=== PATIENT | female | born 1965 | race Caucasian/White ===

== ENCOUNTER → 2016-04-10 | Outpatient (CLI) | payer OTHER ==
--- NOTE | 2016-04-10 12:26 | MA ---
Screening Digital Mammogram With iCAD Analysis Clinical Indications: Routine screening. Her paternal grandmother was diagnosed with breast cancer in her 70s. Patient has had a benign left breast biopsy. Technique: Standard cephalocaudal and mediolateral oblique projections were obtained. This examinatio n was processed by the iCAD computer aided detection system. Comparison: May 2013, December 2011, November 2010, November 2008, August 2007, July 2006. Breast density: Type C; Heterogeneously dense. Findings: CAD was reviewed. No masses, suspicious calcifications or other signs of malignancy are id entified. There has been no significant change in the appearance of either breast. Impression: Negative mammogram. BI-RADS 1. Recommendation: Routine mammography in one year as long as physical examination is negative in this p atient with heterogeneously dense breasts. [facility] will send a result letter to the patient. Dense breast parenchyma diminishes mammographic sensitivity. Negative mammography should not preclude additional workup of a clinically suspicious finding. The patient's information is entered into a reminder system with a target due date for her next mammo gram.
== END ==
LOC: FIMAGING 09:41
DX: Z12.31 Encounter for screening mammogram for malignant neoplasm of breast (principal); Z80.3 Family history of malignant neoplasm of breast
CPT/HCPCS: G0202

== ENCOUNTER 2016-04-17 21:19 | Inpatient (IN) | payer OTHER ==
[2016-04-17] MEDS ORDERED: HYDROmorphONE/DILAUDID 1 MG/ML SYR ONE (22:11)
[2016-04-17] MEDS ORDERED: ONDANSETRON 4 MG/2 ML VIAL ONE (22:11)
[2016-04-17 22:26] LABS: % IMMATURE GRANULYOCYTES 0.5 % (0.0-1.1); ABSOLUTE IMMATURE GRANULOCYTES 0.07 10^3/uL (0.00-0.10); ADD DIFF? NO; ADD MORPH? NO; ADD SCAN? NO; ATYPICAL LYMPHOCYTE FLAG 10 (0-99); FRAGMENT RBC FLAG 20 (0-99); HEMATOCRIT 31.7 % (38.0-47.0); HEMOGLOBIN 10.2 g/dL (12.6-16.3); LEFT SHIFT FLG 0 (0-99); LIPEMIA HEMOLYSIS FLAG 80 (0-99); MEAN CELL HEMOGLOBIN 22.7 pg (27.9-34.1); MEAN CELL HEMOGLOBIN CONCENTR. 32.2 g/dL (32.4-36.7); MEAN CELL VOLUME 70.6 fL (81.5-99.8); MEAN PLATELET VOLUME 9.6 fL (8.7-11.7); PLATELET CLUMPS FLAG 0 (0-99); PLATELET COUNT 389 10^3/uL (150-400); RED BLOOD CELL COUNT 4.49 10^6/uL (4.18-5.33); RED CELL DISTRIBUTION WIDTH 17.9 % (11.5-15.2)
[2016-04-17 22:32] LABS: ANION GAP 11 mEq/L (8-16); CALCIUM 9.1 mg/dL (8.5-10.4); CARBON DIOXIDE 20 mEq/l (22-31); CHLORIDE 110 mEq/L (97-110); CREATININE 0.7 mg/dL (0.6-1.0); GLOMERULAR FILTRATION RATE > 60; GLUCOSE 115 mg/dL (70-100); POTASSIUM 3.9 mEq/L (3.5-5.2); SODIUM 141 mEq/L (134-144)
[2016-04-17] MEDS ORDERED: IOPAMIDOL (ISOVUE-300) 100 ML BTL IV ONE (22:40)
[2016-04-17 22:44] LABS: COLOR YELLOW; LEUKOCYTE ESTERASE,URINE 1+ (NEGATIVE); NITRITE,URINE NEGATIVE (NEGATIVE)
[2016-04-17 22:52] LABS: BACTERIA TRACE /hpf (NONE SEEN); MUCUS TRACE /lpf (NONE-1+)
[2016-04-17] MEDS ORDERED: ERTAPENEM 1 GM in NS 100 ML IV ONE (23:29)
--- NOTE | 2016-04-17 23:29 | EDPHY ---
H & P Stated Complaint: abd pain Time Seen by Provider: 04/17/16 21:53 HPI/ROS: Chief complaint: Abdominal pain History of present illness: This is a 50-year-old female who presents to the emergency department for evaluation of abdominal pain. Patient reports the onset of symptoms over the last day. Primarily in the lower quadrants. She did see her primary care doctor's office and they felt she might have a urinary tract infection and started her on Keflex. Despite this symptoms continue to worsen. She has developed an associated fever. She denies precipitating factors. She denies alleviating factors. She denies other associated signs or symptoms. Review of systems: A 10 point review of systems was obtained and other than described above was negative - Personal History LMP (Females 10-55): 15-21 Days Ago Current Tetanus/Diphtheria Vaccine: Yes Current Tetanus Diphtheria and Acellular Pertussis (TDAP): Yes Tetanus Vaccine Date: < 10 years - Medical/Surgical History Hx Asthma: No Hx Chronic Respiratory Disease: No Hx Diabetes: No Hx Cardiac Disease: No Hx Renal Disease: No Hx Cirrhosis: No Hx Alcoholism: No Hx HIV/AIDS: No Hx Splenectomy or Spleen Trauma: No Other PMH: hyperlipidemia, fibroidsd, UTI, CAD - Social History Smoking Status: Never smoked - Physical Exam Exam: General Appearance: Alert, appears uncomfortable. Eyes: Pupils equal and round no pallor or injection. ENT, Mouth: Mucous membranes moist. Respiratory: There are no retractions, lungs are clear to auscultation. Cardiovascular: Regular rate and rhythm. Gastrointestinal: Bowel sounds present. Abdomen is soft. There is tenderness in the lower quadrants bilaterally. Neurological: Alert and oriented. Strength and sensation intact and symmetrical. Skin: Warm and dry, no rashes. Musculoskeletal: Neck is supple non tender. Extremities are symmetrical, full range of motion. Psychiatric: Patient is oriented X 3, there is no agitation. Constitutional: Initial Vital Signs Temperature (C) 37.7 C 04/17/16 21:35 Heart Rate 100 04/17/16 21:35 Respiratory Rate 16 04/17/16 21:35 Blood Pressure 134/88 H 04/17/16 21:35 O2 Sat (%) 97 04/17/16 21:35 O2 Delivery Mode Room Air Allergies/Adverse Reactions: No Known Allergies Allergy (Verified 02/25/14 10:58) Home Medications: Medication Instructions Recorded LEXAPRO 03/08/09 Aspirin 81mg (OTC) 02/25/14 Simvastatin 02/25/14 Hydrocodone/APAP 5/325 [[place] 1 - 2 tab PO Q6H PRN #10 tab 11/06/14 5/325 (*)] Cephalexin [Keflex] 500 mg PO TID 5 Days 12/01/15 Cyclobenzaprine 04/17/16 Medical Decision Making - Diagnostics Imaging: CT scan of the abdomen pelvis with IV contrast reveals a diverticulitis ED Course/Re-evaluation: Patient seen under the supervision of my secondary supervising physician Dr. Twin Dunlap. Patient presents to the emergency department for evaluation of abdominal pain. Ultimately she appears to have diverticulitis without evidence of complications. However, she remains very uncomfortable with poor pain control. She is therefore admitted to the hospitalist, Dr. Rafael Mayo, for further evaluation and care. The plan has been discussed with the patient voiced understanding and agreement with it. Differential Diagnosis: Included but not limited to appendicitis, diverticulitis, colitis, bowel obstruction, urinary tract disease - Data Points Laboratory Results: Laboratory Results 04/17/16 21:58 04/17/16 21:58 04/17/16 04/17/16 04/17/16 22:10 21:58 21:58 WBC RBC Hgb Hct MCV MCH MCHC RDW Plt Count MPV Neut % (Auto) Lymph % (Auto) Roosevelt % (Auto) Eos % (Auto) Baso % (Auto) Nucleat RBC Rel Count Absolute Neuts (auto) Absolute Lymphs (auto) Absolute Monos (auto) Absolute Eos (auto) Absolute Basos (auto) Absolute Nucleated RBC Immature Gran % Immature Gran # Sodium 141 mEq/L mEq/L (134-144) Potassium 3.9 mEq/L mEq/L (3.5-5.2) Chloride 110 mEq/L mEq/L (97-110) Carbon Dioxide 20 mEq/l L mEq/l (22-31) Anion Gap 11 mEq/L mEq/L (8-16) BUN 8 mg/dL mg/dL (7-23) Creatinine 0.7 mg/dL mg/dL (0.6-1.0) Estimated GFR > 60 Glucose 115 mg/dL H mg/dL (70-100) Calcium 9.1 mg/dL mg/dL (8.5-10.4) Lipase 85.0 IU/L IU/L (23-300) Beta HCG, Qual NEGATIVE Urine Color YELLOW Urine Appearance HAZY Urine pH 5.0 (5.0-7.5) Ur Specific [place] 1.015 (1.002-1.030) Urine Protein NEGATIVE (NEGATIVE) Urine Ketones NEGATIVE (NEGATIVE) Urine Blood NEGATIVE (NEGATIVE) Urine Nitrate NEGATIVE (NEGATIVE) Urine Bilirubin NEGATIVE (NEGATIVE) Urine Urobilinogen NEGATIVE EU EU (0.2-1.0) Ur Leukocyte Esterase 1+ H (NEGATIVE) Urine RBC 5-10 /hpf H /hpf (0-3) Urine WBC 5-10 /hpf H /hpf (0-3) Ur Epithelial Cells TRACE /lpf /lpf (NONE-1+) Urine Bacteria TRACE /hpf H /hpf (NONE SEEN) Urine Mucus TRACE /lpf /lpf (NONE-1+) Ur Culture Indicated? INDICATED H (NI) Urine Glucose NEGATIVE (NEGATIVE) 04/17/16 21:58 WBC 14.90 10^3/uL H 10^3/uL (3.80-9.50) RBC 4.49 10^6/uL 10^6/uL (4.18-5.33) Hgb 10.2 g/dL L g/dL (12.6-16.3) Hct 31.7 % L % (38.0-47.0) MCV 70.6 fL L fL (81.5-99.8) MCH 22.7 pg L pg (27.9-34.1) MCHC 32.2 g/dL L g/dL (32.4-36.7) RDW 17.9 % H % (11.5-15.2) Plt Count 389 10^3/uL 10^3/uL (150-400) MPV 9.6 fL fL (8.7-11.7) Neut % (Auto) 83.4 % H % (39.3-74.2) Lymph % (Auto) 9.3 % L % (15.0-45.0) Roosevelt % (Auto) 6.0 % % (4.5-13.0) Eos % (Auto) 0.5 % L % (0.6-7.6) Baso % (Auto) 0.3 % % (0.3-1.7) Nucleat RBC Rel Count 0.0 % % (0.0-0.2) Absolute Neuts (auto) 12.43 10^3/uL H 10^3/uL (1.70-6.50) Absolute Lymphs (auto) 1.38 10^3/uL 10^3/uL (1.00-3.00) Absolute Monos (auto) 0.90 10^3/uL H 10^3/uL (0.30-0.80) Absolute Eos (auto) 0.07 10^3/uL 10^3/uL (0.03-0.40) Absolute Basos (auto) 0.05 10^3/uL 10^3/uL (0.02-0.10) Absolute Nucleated RBC 0.00 10^3/uL 10^3/uL (0-0.01) Immature Gran % 0.5 % % (0.0-1.1) Immature Gran # 0.07 10^3/uL 10^3/uL (0.00-0.10) Sodium Potassium Chloride Carbon Dioxide Anion Gap BUN Creatinine Estimated GFR Glucose Calcium Lipase Beta HCG, Qual Urine Color Urine Appearance Urine pH Ur Specific [place] Urine Protein Urine Ketones Urine Blood Urine Nitrate Urine Bilirubin Urine Urobilinogen Ur Leukocyte Esterase Urine RBC Urine WBC Ur Epithelial Cells Urine Bacteria Urine Mucus Ur Culture Indicated? Urine Glucose Medications Given: Discontinued Medications Hydromorphone HCl (Dilaudid) 1 mg IVP EDNOW ONE Stop: 04/17/16 23:44 Last Admin: 04/17/16 22:00 Dose: 1 mg Sodium Chloride (Ns) 1,000 mls @ 0 mls/hr IV ONCE ONE PRN Reason: Wide Open Stop: 04/17/16 23:44 Last Admin: 04/17/16 22:00 Dose: 1,000 mls Ondansetron HCl (Zofran) 4 mg IVP EDNOW ONE Stop: 04/17/16 23:44 Last Admin: 04/17/16 22:00 Dose: 4 mg Departure - Departure Disposition: [facility] Clinical Impression: Diverticulitis Qualifiers: Diverticulitis site: large intestine Diverticulitis bleeding: without bleeding Diverticulitis complication: without perforation or abscess Qualified Code(s): K57.32 - Diverticulitis of large intestine without perforation or abscess without bleeding Condition: Good
[2016-04-17] MEDS ORDERED: NS 1,000 ML IV ONE (23:43)
[2016-04-17] MEDS ORDERED: HYDROmorphONE/DILAUDID 1 MG/ML SYR IVP ONE (23:43)
[2016-04-17] MEDS ORDERED: ONDANSETRON 4 MG/2 ML VIAL IVP ONE (23:43)
[2016-04-18] MEDS ORDERED: ONDANSETRON DISINTEGRATING 4 MG TAB PO PRN (01:09)
[2016-04-18] MEDS: oxyCODONE IR 5 MG TAB PO PRN ×5 (01:30→20:14)
[2016-04-18] MEDS: NS 1,000 ML IV SCH ×2 (01:31→09:04)
--- NOTE | 2016-04-18 01:36 | GHP ---
[f rep st] HISTORY AND PHYSICAL DATE OF ADMISSION: 04/17/2016 CHIEF COMPLAINT: Abdominal pain. HISTORY OF PRESENT ILLNESS: A 50-year-old female with nonsignificant past medical history, presents with 2 days of lower abdominal pain. No change in bowel movements. No nausea, vomiting. She does have fever. She has never had diverticulitis before. REVIEW OF SYSTEMS: 10-point review of systems was obtained and other than HPI was negative. PAST MEDICAL HISTORY: 1. Hyperlipidemia. 2. Anxiety. MEDICATIONS: Reviewed. SOCIAL HISTORY: No smoking. Occasional alcohol. FAMILY HISTORY: Mother had diverticulitis. PHYSICAL EXAMINATION: VITAL SIGNS: Afebrile. Blood pressure is 110/63, heart rate 74, oxygen satu ration 92% on room air. GENERAL: The patient is well developed, in no apparent distress. HEENT: Nonicteric sclerae. Extraocular muscles intact. Moist mucous membranes. NECK: Supple. No thyrom egaly. LUNGS: Good effort. Clear to auscultation bilaterally. CARDIOVASCULAR: Regular rate and rhythm. No murmurs or gallops. ABDOMEN: Positive bowel sounds. Soft. Some lower abdominal tende rness. No rebound or guarding. EXTREMITIES: No clubbing, cyanosis, or edema. SKIN: Without rash . Warm, dry, intact. NEUROLOGIC: Alert and oriented x3. Moving all 4 extremities equally. PSYCH : Normal mood and affect. LABORATORY: White count , hemoglobin was 10 with an MCV of 70. Platelets 389. Beta hCG is negative. Chemistries normal. CT scan of the abdomen shows significant sigmoid diverticulitis without abscess or free air. ASSESSMENT: This is a 50-year-old female presenting with diverticulitis. PLAN: 1. Diverticulitis. We will treat with IV Invanz. Continue pain control. 2. Anxiety. Continue medications. 3. Microcytic anemia. We will check iron studies. /[id number]/MODL
[2016-04-18] MEDS: HYDROmorphONE/DILAUDID 1 MG/ML SYR IVP PRN (04:52)
[2016-04-18 05:25] LABS: % IMMATURE GRANULYOCYTES 0.6 % (0.0-1.1); ABSOLUTE IMMATURE GRANULOCYTES 0.07 10^3/uL (0.00-0.10); ADD DIFF? NO; ADD MORPH? NO; ADD SCAN? NO; ATYPICAL LYMPHOCYTE FLAG 0 (0-99); FRAGMENT RBC FLAG 20 (0-99); HEMATOCRIT 28.5 % (38.0-47.0); HEMOGLOBIN 9.1 g/dL (12.6-16.3); LEFT SHIFT FLG 0 (0-99); LIPEMIA HEMOLYSIS FLAG 80 (0-99); MEAN CELL HEMOGLOBIN CONCENTR. 31.9 g/dL (32.4-36.7); MEAN PLATELET VOLUME 9.8 fL (8.7-11.7); PLATELET CLUMPS FLAG 10 (0-99); PLATELET COUNT 340 10^3/uL (150-400); RED BLOOD CELL COUNT 3.96 10^6/uL (4.18-5.33); RED CELL DISTRIBUTION WIDTH 17.8 % (11.5-15.2)
[2016-04-18 05:34] LABS: ALANINE AMINOTRANSFERASE 25 IU/L (9-52); ALBUMIN 3.3 g/dL (3.5-5.0); ALKALINE PHOSPHATASE 63 IU/L (38-126); ANION GAP 7 mEq/L (8-16); ASPARTATE AMINOTRANSFERASE 12 IU/L (14-46); BILIRUBIN,TOTAL 1.3 mg/dL (0.1-1.4); CALCIUM 8.5 mg/dL (8.5-10.4); CARBON DIOXIDE 20 mEq/l (22-31); CHLORIDE 112 mEq/L (97-110); CREATININE 0.7 mg/dL (0.6-1.0); GLOMERULAR FILTRATION RATE > 60; GLUCOSE 90 mg/dL (70-100); POTASSIUM 4.3 mEq/L (3.5-5.2); SODIUM 139 mEq/L (134-144); TOTAL PROTEIN 5.8 g/dL (6.3-8.2)
[2016-04-18 05:43] LABS: % SATURATION 4 % (20-55); TOTAL IRON BINDING CAPACITY 288 ug/dL (260-490)
[2016-04-18 06:09] LABS: FERRITIN - BCH 14.6 ng/mL (6.2-264.0)
[2016-04-18] MEDS: ENOXAPARIN 40 MG/0.4 ML SYR SC SCH (07:31)
[2016-04-18] MEDS: ONDANSETRON 4 MG/2 ML VIAL IVP PRN (09:02)
[2016-04-18] MEDS: ERTAPENEM 1 GM in NS 100 ML IV SCH (09:03)
[2016-04-18] MEDS: ACETAMINOPHEN 325 MG TAB PO PRN ×2 (11:09→20:13)
[2016-04-18] MEDS ORDERED: SODIUM FERRIC GLUCONAT/SUCROSE 125 MG in NS 100 ML IV ONE (12:00)
[2016-04-18] MEDS ORDERED: ALPRAZolam 0.5 MG TAB PO PRN (12:24)
[2016-04-18] MEDS ORDERED: NON-FORMULARY NEW DRUG (Omeprazole [Prilosec 20 Mg] 20 MG) PO PRN (12:24)
[2016-04-18] MEDS ORDERED: CYCLOBENZAPRINE 10 MG TAB PO PRN (12:24)
[2016-04-18] MEDS ORDERED: ACETAMINOPHEN 325 MG TAB PO PRN (12:24)
[2016-04-18] MEDS ORDERED: PANTOPRAZOLE SODIUM 40 MG TAB PO PRN (12:27)
--- NOTE | 2016-04-18 16:17 | HOSPPROG ---
Hospitalist Progress Note Assessment/Plan: 50-year-old female presents emergency room complaints of acute abdominal pain. This is my 1st encounter with the patient, chart reviewed. Patient discussed with Dr. Holm the admitting provider. # diverticulitis This is the patient's 1st bout of diverticulitis CT scan shows no signs of perforation Continue IV antibiotic therapy Continue bowel rest and supportive care # pain continue supportive pain medication and management #Microcytic anemia Provide AV iron to the patient today Recommend outpatient colonoscopy and further evaluation once acute process resolves Educated patient as well as with regards to need for further evaluation #History of anxiety Continue home medications # disposition Unclear at this time Patient requires further IV antibiotic therapy and supportive management hospital setting Will transition to oral antibiotics when able Continue pain medications and IV fluids Subjective: still having significant abdominal pain. Less than yesterday. Feeling better than yesterday. Objective: Vital Signs Temp Pulse Resp BP Pulse Ox 36.4 C 72 16 126/71 H 96 04/18/16 08:23 04/18/16 08:23 04/18/16 08:23 04/18/16 08:23 04/18/16 08:23 Laboratory Results 04/18/16 04:48 04/18/16 04:48 04/17/16 04/18/16 04/19/16 05:59 05:59 05:59 Intake Total 2500 1200 Output Total 400 Balance 2100 1200 - Physical Exam Constitutional: appears nourished, uncomfortable, No chronically ill appearing Eyes: PERRL, anicteric sclera, EOMI Ears, Nose, Mouth, Throat: moist mucous membranes, hearing normal, ears appear normal Cardiovascular: regular rate and rhythym, No JVD, No edema Respiratory: no respiratory distress, no rales or rhonchi, reduced air movement Gastrointestinal: tenderness, distension, No ascites, No guarding Skin: warm, normal color, No erythema Musculoskeletal: full muscle strength, normal joint ROM, no joint effusions Neurologic: AAOx3 Psychiatric: interacting appropriately, not anxious, not encephalopathic ICD10 Worksheet Patient Problems: Problems Problem Status Onset Diverticulitis Acute
[2016-04-18] MEDS: ESCITALOPRAM OXALATE 10 MG TAB PO SCH (20:14)
[2016-04-18] MEDS ORDERED: NON-FORMULARY NEW DRUG (Escitalopram Oxalate [Lexapro] 5 MG) PO SCH (21:00)
[2016-04-19] MEDS: oxyCODONE IR 5 MG TAB PO PRN ×2 (00:17→04:07)
[2016-04-19] MEDS: ACETAMINOPHEN 325 MG TAB PO PRN ×3 (04:06→16:06)
[2016-04-19] MEDS: ERTAPENEM 1 GM in NS 100 ML IV SCH (08:12)
[2016-04-19] MEDS: ENOXAPARIN 40 MG/0.4 ML SYR SC SCH (08:12)
[2016-04-19] MEDS: ONDANSETRON 4 MG/2 ML VIAL IVP PRN (08:57)
[2016-04-19] MEDS: NS 1,000 ML IV SCH ×2 (10:56→17:22)
--- NOTE | 2016-04-19 15:27 | HOSPPROG ---
Hospitalist Progress Note Assessment/Plan: 50-year-old female presents emergency room complaints of acute abdominal pain. # diverticulitis This is the patient's 1st bout of diverticulitis CT scan shows no signs of perforation Continue IV antibiotic therapy Continue bowel rest and supportive care # pain continue supportive pain medication and management # headache May be secondary to the patient's narcotic use Encouraged Tylenol only #Microcytic anemia Provided IV iron to the patient Recommend outpatient colonoscopy and further evaluation once acute process resolves Educated patient as well as with regards to need for further evaluation #History of anxiety Continue home medications # disposition Unclear at this time Patient requires further IV antibiotic therapy and supportive management hospital setting Will transition to oral antibiotics when able Continue pain medications and IV fluids Subjective: Complaints of headache with some nausea. Abdominal pain improved today. Unable to tolerate oral intake. Objective: Vital Signs Temp Pulse Resp BP Pulse Ox 36.8 C 58 L 16 106/70 94 04/19/16 07:58 04/19/16 07:58 04/19/16 07:58 04/19/16 07:58 04/19/16 07:58 Laboratory Results 04/18/16 04:48 04/18/16 04:48 04/18/16 04/19/16 04/20/16 05:59 05:59 05:59 Intake Total 2500 4275 Output Total 400 Balance 2100 4275 - Physical Exam Constitutional: appears nourished, uncomfortable Eyes: PERRL, anicteric sclera Ears, Nose, Mouth, Throat: moist mucous membranes, hearing normal, ears appear normal Cardiovascular: No JVD, No edema Respiratory: no respiratory distress, reduced air movement Gastrointestinal: tenderness, No ascites, No guarding Skin: warm, normal color Musculoskeletal: no joint effusions, generalized weakness Neurologic: AAOx3 Psychiatric: not anxious, not encephalopathic, thought process linear ICD10 Worksheet Patient Problems: Problems Problem Status Onset Diverticulitis Acute
[2016-04-19] MEDS: ACETAMINOPHEN/ASA/CAFFEINE 1 EACH TAB PO PRN (19:49)
[2016-04-19] MEDS: ESCITALOPRAM OXALATE 10 MG TAB PO SCH (21:18)
[2016-04-20] MEDS: NS 1,000 ML IV SCH ×2 (01:09→09:02)
[2016-04-20] MEDS: ERTAPENEM 1 GM in NS 100 ML IV SCH (09:02)
[2016-04-20] MEDS: ENOXAPARIN 40 MG/0.4 ML SYR SC SCH (09:04)
[2016-04-20] MEDS: ACETAMINOPHEN/ASA/CAFFEINE 1 EACH TAB PO PRN (09:30)
--- NOTE | 2016-04-20 13:30 | HOSPPROG ---
Hospitalist Progress Note Assessment/Plan: 50-year-old female presents emergency room complaints of acute abdominal pain. # diverticulitis This is the patient's 1st bout of diverticulitis CT scan shows no signs of perforation clear liquids attempt po abx in the am # pain continue supportive pain medication and management # headache May be secondary to the patient's narcotic use Encouraged Tylenol only better today #Microcytic anemia Provided IV iron to the patient Recommend outpatient colonoscopy and further evaluation once acute process resolves Educated patient as well as with regards to need for further evaluation #History of anxiety Continue home medications # disposition Unclear at this time Patient requires further IV antibiotic therapy and supportive management hospital setting Will transition to oral antibiotics when able Continue pain medications and IV fluids Subjective: Feeling better today. Less abdominal pain. Headache is improved today. Eager to try clear liquids. Objective: Vital Signs Temp Pulse Resp BP Pulse Ox 36.6 C 69 16 145/83 H 94 04/20/16 07:48 04/20/16 07:48 04/20/16 07:48 04/20/16 07:48 04/20/16 07:48 Laboratory Results 04/18/16 04:48 04/18/16 04:48 04/19/16 04/20/16 04/21/16 05:59 05:59 05:59 Intake Total 4275 1637 Output Total 50 Balance 4275 1587 - Physical Exam Constitutional: no apparent distress, appears nourished Eyes: PERRL, anicteric sclera Ears, Nose, Mouth, Throat: moist mucous membranes, hearing normal Cardiovascular: No JVD, No edema Respiratory: no respiratory distress, reduced air movement Gastrointestinal: tenderness, No ascites Skin: warm, normal color Musculoskeletal: no joint effusions, generalized weakness Neurologic: AAOx3 Psychiatric: not anxious, not encephalopathic, thought process linear ICD10 Worksheet Patient Problems: Problems Problem Status Onset Diverticulitis Acute
[2016-04-20] MEDS: ESCITALOPRAM OXALATE 10 MG TAB PO SCH (20:28)
[2016-04-20] MEDS: ACETAMINOPHEN 325 MG TAB PO PRN (20:29)
[2016-04-20] MEDS: HYDROmorphONE/DILAUDID 1 MG/ML SYR IVP PRN (20:29)
[2016-04-20 23:29] VITALS: O2SAT 92
[2016-04-21] MEDS: ACETAMINOPHEN 325 MG TAB PO PRN (05:29)
[2016-04-21 08:09] VITALS: BP 148/86; PULSE 49; RESP 14; TEMP 98.2
[2016-04-21] MEDS: ENOXAPARIN 40 MG/0.4 ML SYR SC SCH (09:03)
[2016-04-21] MEDS: metroNIDAZOLE 500 MG TAB PO SCH ×2 (10:35→13:40)
[2016-04-21] MEDS: ACETAMINOPHEN/ASA/CAFFEINE 1 EACH TAB PO PRN (11:06)
--- NOTE | 2016-04-21 13:35 | GDS ---
[f rep st] DISCHARGE SUMMARY DISCHARGE DIAGNOSES: 1. Iron deficiency anemia. 2. Diverticulitis. 3. Pain. 4. Headache. 5. History of anxiety. STUDIES AND PROCEDURES DONE: 1. CT of the abdomen. 2. Abdominal x-ray. PHYSICAL EXAM: GENERAL: The patient is alert. VITAL SIGNS: Afebrile, 36.8, pulse is 49, respirat ory rate 14, blood pressure is 148/86. She is saturating 92% on room air. I have seen and evaluate d the patient on the day of discharge. HOSPITAL COURSE: The patient is a 50-year-old female who presented to the emergency room with compl aints of abdominal pain. She was evaluated and diagnosed with: 1. Acute diverticulitis. During the patient's hospitalization a CT scan was performed demonstratin g diverticulitis. She was treated with IV antibiotic therapy and has been transitioned to oral anti biotic therapy to complete her regimen. She is tolerating this well at the time of disposition, and tolerating regular food. Her abdominal pain is significantly improved, and she will continue her r ecovery in the outpatient setting. 2. Pain. This is resolved, secondary to acute infectious process. 3. Microcytic anemia. The patient did receive a dose of IV iron during this hospitalization. It h as been recommended to followup in the outpatient setting with her primary care physician. She is d ue for a colonoscopy, and I have instructed her to get a colonoscopy in the next 4-6 weeks for furth er evaluation of her anemia. She is in agreement with this plan. She will also follow up with her primary care doctor in 2-3 days for further recommendations and plan management. 4. History of anxiety, this is stable. 5. Headache, this has resolved, in the setting of acute infectious process, with likely caffeine wi thdrawal. CONDITION: Improved and stable. DISPOSITION: The patient will be discharged home independently. FOLLOW UP: Follow up will be with her primary care physician, Dr. Kalee Tinoco in the next 3-4 days. She will also get a colonoscopy, as well as a gynecological evaluation. DISCHARGE MEDICATIONS: I provided the patient a prescription for Levaquin 750 mg daily, as well as Flagyl 500 mg q.8, we will continue for a total of 5 more days. I have not adjusted any of the fernando ent's other previously prescribed home medications, to the best of my knowledge. I spent greater than 35 minutes in the care, coordination, and management of this patient's discharg e. /[id number]/MODL
== END 2016-04-21 13:44 | disposition home or self-care (01) | DRG 392 ==
LOC: F3N 04-18 00:19
PROVIDERS: ADMIT Internal Medicine; ATTEND Internal Medicine
DX: K57.32 Diverticulitis of large intestine without perforation or abscess without bleeding (principal); D50.9 Iron deficiency anemia, unspecified; R51 Headache; F41.9 Anxiety disorder, unspecified; E78.5 Hyperlipidemia, unspecified; I25.10 Atherosclerotic heart disease of native coronary artery without angina pectoris
CPT/HCPCS: 96374; J1170; J1335; J1650; J2405; J2916; Q9967

== ENCOUNTER 2017-07-24 06:39 | Emergency (ER) | payer OTHER ==
[2017-07-24] MEDS ORDERED: NS 1,000 ML IV ONE (07:11)
[2017-07-24] MEDS ORDERED: fentaNYL 100 MCG/2 ML INJ IVP ONE (07:11)
[2017-07-24 07:28] LABS: PLATELET COUNT 296 10^3/uL (150-400)
--- NOTE | 2017-07-24 07:43 | EDPHY ---
H & P Stated Complaint: abdominal pain for Time Seen by Provider: 07/24/17 06:58 HPI/ROS: CHIEF COMPLAINT: Abdominal pain HISTORY OF PRESENT ILLNESS: 52 year old female presents the emergency department reporting that she think she has diverticulitis again. Patient developed lower abdominal discomfort yesterday around 3 in the afternoon. Pain is described as across the lower abdomen but slightly worse on the left. If feel similar to her prior diagnosis of diverticulitis. She had some diarrhea yesterday afternoon. She does note that last weekend she had changes in her typical diet as they were hosting a graduation constitution party. She has had no fevers or chills. No nausea. No vomiting. No urinary complaints. Pain is described as crampy with waves of pain and patient initially thought that it may be related to menstrual cycle. She is a prior history of diverticulitis requiring hospitalization urine half ago. She reports that she had a similar episode of what she stone was diverticulitis about a month ago and was placed on Augmentin. It took a bit of time before her symptoms resolved. REVIEW OF SYSTEMS: Aside from elements discussed in the HPI, a comprehensive 10-point review of systems was reviewed and is negative. PAST MEDICAL HISTORY: Diverticulitis. SOCIAL HISTORY: Nonsmoker, no marijuana use, social alcohol use only. Primary care physician Dr. Tinoco, OBGYN Dr. Walker. VITAL SIGNS Reviewed by me. GENERAL: Very pleasant, well-developed, well-nourished, no respiratory distress. HEENT: Atraumatic. Eyes: No icterus, no injection. Mouth: moist mucous membranes. No erythema or lesions. Neck: supple with no adenopathy. LUNGS: Clear to auscultation bilaterally, no wheezes, rhonchi or rales. CARDIAC: Regular rate and rhythm, no rubs, murmurs or gallops. ABDOMEN: Soft, suprapubic tenderness, right and left lower quadrant tenderness , left greater than right. No guarding or rebound. Mildly distended. BACK: No CVA tenderness. EXTREMITIES: No trauma. No edema. Range of motion is normal throughout. NEURO: Alert and oriented, grossly nonfocal. SKIN: Warm and dry, no rash. PSYCHIATRIC: Normal mentation, no agitation. - Personal History LMP (Females 10-55): 15-21 Days Ago Current Tetanus Diphtheria and Acellular Pertussis (TDAP): Unsure Tetanus Vaccine Date: < 10 years - Medical/Surgical History Hx Asthma: No Hx Chronic Respiratory Disease: No Hx Diabetes: No Hx Cardiac Disease: No Hx Renal Disease: No Hx Cirrhosis: No Hx Alcoholism: No Hx HIV/AIDS: No Hx Splenectomy or Spleen Trauma: No Other PMH: hyperlipidemia, fibroids, UTI, diverticulitis - Social History Smoking Status: Never smoked Constitutional: Initial Vital Signs Temperature (C) 37.1 C 07/24/17 06:58 Heart Rate 71 07/24/17 06:58 Respiratory Rate 14 07/24/17 06:58 Blood Pressure 133/95 H 07/24/17 06:58 O2 Sat (%) 94 07/24/17 06:58 O2 Delivery Mode Room Air Allergies/Adverse Reactions: No Known Allergies Allergy (Verified 07/24/17 06:56) Home Medications: Medication Instructions Recorded Escitalopram Oxalate [Lexapro] 5 mg PO HS 03/08/09 Aspirin [Aspirin 81mg (*)] 81 mg PO HS 02/25/14 Simvastatin [Zocor] 40 mg PO HS 02/25/14 Acetaminophen [Tylenol 325mg (*)] 325 mg PO DAILY PRN 04/18/16 Ibuprofen [Motrin (*)] 200 mg PO DAILY PRN 04/18/16 Omeprazole [Prilosec 20 mg] 20 mg PO DAILY PRN 04/18/16 Ciprofloxacin [Cipro] 500 mg PO BID #20 tab 07/24/17 Hydrocodone/APAP 5/325 [[place] 1 tab PO Q6H PRN #14 tab 07/24/17 5/325 (RX)] Metronidazole 500 mg PO TID #30 tablet 07/24/17 Medical Decision Making ED Course/Re-evaluation: IV placed. Patient received normal saline. Fentanyl 75 mcg administered. Patient and I discussed imaging studies. At this point, due to financial concerns, the patient would prefer not to undergo extensive imaging studies. Patient's laboratory evaluation is largely unremarkable. HCG is negative, white count of 12, normal chemistries. Patient re-examined, pain is improved with fentanyl. BUN and creatinine are normal. Will treat with Toradol. I discussed the laboratory findings with the patient. We discussed the differential of diverticulitis verses pelvic related complaints. Patient would prefer a trial of outpatient antibiotics at this time with close follow-up. I believe this is a reasonable plan. I will treat the patient for presumed diverticulitis, however, she and I held a long discussion regarding the importance of close follow-up. If her symptoms are not resolving as expected or are worsening CT scanning may be indicated. We also discussed follow up with Dr. Walker for consideration of discomfort related to manny menopausal symptoms. We also discussed other tactical debriefer officer etiologies that could be causing her discomfort to include ovarian cyst, uterine fibroids, ovarian mass, other etiologies. She understands my cautions and will ensure follow-up if she is not improving as expected with a presumptive diagnosis of diverticulitis. Differential Diagnosis: The differential diagnosis for the patient's abdominal pain was considered including but not limited to diverticulitis, urinary tract infection, ovarian cyst, pelvic etiologies, constipation, enteritis, gastroenteritis. - Data Points Laboratory Results: Laboratory Results 07/24/17 07:20 07/24/17 07:20 07/24/17 07/24/17 07/24/17 07:20 07:20 07:20 WBC 12.66 10^3/uL H 10^3/uL (3.80-9.50) RBC 4.94 10^6/uL 10^6/uL (4.18-5.33) Hgb 13.6 g/dL g/dL (12.6-16.3) Hct 40.3 % % (38.0-47.0) MCV 81.6 fL fL (81.5-99.8) MCH 27.5 pg L pg (27.9-34.1) MCHC 33.7 g/dL g/dL (32.4-36.7) RDW 15.1 % % (11.5-15.2) Plt Count 296 10^3/uL 10^3/uL (150-400) MPV 9.2 fL fL (8.7-11.7) Neut % (Auto) 81.2 % H % (39.3-74.2) Lymph % (Auto) 11.6 % L % (15.0-45.0) Frontier % (Auto) 5.0 % % (4.5-13.0) Eos % (Auto) 1.4 % % (0.6-7.6) Baso % (Auto) 0.5 % % (0.3-1.7) Nucleat RBC Rel Count 0.0 % % (0.0-0.2) Absolute Neuts (auto) 10.28 10^3/uL H 10^3/uL (1.70-6.50) Absolute Lymphs (auto) 1.47 10^3/uL 10^3/uL (1.00-3.00) Absolute Monos (auto) 0.63 10^3/uL 10^3/uL (0.30-0.80) Absolute Eos (auto) 0.18 10^3/uL 10^3/uL (0.03-0.40) Absolute Basos (auto) 0.06 10^3/uL 10^3/uL (0.02-0.10) Absolute Nucleated RBC 0.00 10^3/uL 10^3/uL (0-0.01) Immature Gran % 0.3 % % (0.0-1.1) Immature Gran # 0.04 10^3/uL 10^3/uL (0.00-0.10) Sodium 141 mEq/L mEq/L (135-145) Potassium 4.4 mEq/L mEq/L (3.3-5.0) Chloride 106 mEq/L mEq/L (97-110) Carbon Dioxide 23 mEq/l mEq/l (22-31) Anion Gap 12 mEq/L mEq/L (8-16) BUN 9 mg/dL mg/dL (7-23) Creatinine 0.6 mg/dL mg/dL (0.6-1.0) Estimated GFR > 60 Glucose 90 mg/dL mg/dL (70-100) Calcium 9.2 mg/dL mg/dL (8.5-10.4) Beta HCG, Qual NEGATIVE Medications Given: Discontinued Medications Fentanyl (Sublimaze) 75 mcg IVP EDNOW ONE Stop: 07/24/17 07:12 Last Admin: 07/24/17 07:26 Dose: 75 mcg Sodium Chloride (Ns) 1,000 mls @ 0 mls/hr IV EDNOW ONE; Wide Open PRN Reason: Protocol Stop: 07/24/17 07:12 Last Admin: 07/24/17 07:23 Dose: 1,000 mls Ketorolac Tromethamine (Toradol) 30 mg IVP EDNOW ONE Stop: 07/24/17 07:45 Last Admin: 07/24/17 08:03 Dose: 30 mg Departure - Departure Disposition: Home, Routine, Self-Care Clinical Impression: Presumed diverticulitis Abdominal pain Qualifiers: Abdominal location: lower abdomen, unspecified Qualified Code(s): R10.30 - Lower abdominal pain, unspecified Condition: Good Instructions: Diverticulitis (ED), Diverticulitis Diet (ED) Additional Instructions: Begin taking the antibiotics as directed. Ciprofloxacin 500 mg by mouth 2 times a day for 10 days. Metronidazole 500 mg by mouth 3 times a day for 10 days. Avoid alcohol while you are taking metronidazole. Okay to use hydrocodone if needed for more severe pain. Please follow up with her primary care physician if you're not improving as expected. You also may consider whether this discomfort is related to a tactical debriefer officer/hormonal issue. Referrals: Patient,NotPresent [Unknown] - As per Instructions Prescriptions: Ciprofloxacin [Cipro] 500 mg PO BID #20 tab Hydrocodone/APAP 5/325 [[place] 5/325 (RX)] 1 tab PO Q6H PRN #14 tab PRN Reason: Pain Metronidazole 500 mg PO TID #30 tablet
[2017-07-24] MEDS ORDERED: KETOROLAC 30 MG/1 ML SDV IVP ONE (07:44)
[2017-07-24 08:11] VITALS: BP 123/76
== END 2017-07-24 08:30 | disposition home or self-care (01) ==
LOC: CED 06:39
DX: R10.30 Lower abdominal pain, unspecified (principal); E86.9 Volume depletion, unspecified; Z79.82 Long term (current) use of aspirin
CPT/HCPCS: 80048-PO; 84703-PO; 85025-PO; 96374; J1885; J3010

== ENCOUNTER → 2018-05-15 | Outpatient (CLI) | payer OTHER | LOC: FIMAGING 08:52 | PROVIDERS: ATTEND Family Medicine | DX: K57.92 Diverticulitis of intestine, part unspecified, without perforation or abscess without bleeding (principal); K76.89 Other specified diseases of liver; M89.9 Disorder of bone, unspecified | CPT/HCPCS: 78320; 93017; A9503 ==